=== PATIENT | female | born 1990 | race Hispanic/Latino ===

== ENCOUNTER 2017-03-11 17:54 | Emergency (ER) | payer OTHER ==
[2017-03-11 18:27] VITALS: BP 115/75; PULSE 61; RESP 18; O2SAT 99
--- NOTE | 2017-03-11 19:19 | ED.REPORT ---
HPI-General Illness Date of Service Mar 11, 2017 ED Provider: History of Present Illness: Patient hit head on a tree branch at 2:00 today. Did not lose consciousness. Feeling some dizziness. Has a headache at this point. Is not taking any medications for headache. NO visual changes. NO altered level of conciousness Nursing Notes Stated Complaint: FALL Chief Complaint: Skin Rash/Abscess Allergies: Coded Allergies: No Known Allergies (Unverified , 03/11/17) General Time Seen by MD: 19:12 Chief Complaint Headache Hx Obtained From: Patient Arrived By: Walk-in Sudden in Onset?: Yes Onset Occurred: 5 - 8 hours ago Symptom Duration: Since onset Caused by: Accidental Location: : Head Radiation: : Does not radiate Severity: Current: Moderate Severity: Maximum: Moderate Recent Healthcare: No recent doctor visit Similar Sx Previous: No Past Medical History Past Medical History Notes: denies Review of Systems Full Review of Systems Constitutional: Denies: Fever Eyes: Denies: Blurred bilateral, Eye pain bilateral, Visual loss bilateral Respiratory: Denies: Dyspnea on exertion Cardiovascular: Denies: Chest pain GI: Denies: Abdominal pain, Nausea, Vomiting Musculoskeletal: Denies: Back pain Neurologic: Reports: Headache, Denies: Change LOC, Confusion, Dizziness, Lightheaded, Numbness Complete sys rev & neg: except as marked. Physical Exam Vital Signs Vital Signs Date Time Temp Pulse Resp B/P Pulse Ox O2 Delivery O2 Flow Rate FiO2 03/11/17 18:27 37.4 61 18 115/75 99 Room Air Initial VS: Reviewed, Vital signs normal General/Constitutional: Well-developed, Well-nourished Head / Eyes: Atraumatic, Normocephalic, PERRL ENT: Mucous membranes moist, Conjunctiva normal, No scleral icterus Neck: Supple, Non-tender, Full range of motion Respiratory: Breath sounds normal, Clear to auscultation, No respiratory distress Cardiovascular: Regular rate & rhythm, Heart sounds normal, Intact distal pulses Abdomen / GI: Soft, Non-tender, No guarding, No rebound, No distention Skin: Warm, Dry, No cyanosis Neurologic: Alert, Oriented, Nonfocal Psychiatric: Mood/affect normal, Behavior normal, Normal thought content Head / Eyes: Normocephalic, PERRL, EOMI, No nystagmus, No periorbital redness, No periorbital swelling, No photophobia ENT: Airway patent, Mucous membranes moist, Pharynx NL Neck: Supple, No meningismus, Full range of motion, No swelling, Non-tender, No masses Respiratory / Chest: Breath sounds NL, No respiratory distress, No rales, No rhonchi, No wheezing Cardiovascular: Heart rate NL, Regular rhythm, Heart sounds NL, Cap refill not delayed, Peripheral circulation NL Abdomen: Non-tender, No guarding, No rebound Discharge & Departure Shift Change Sign-Out Procedures: Results discussed Response to Therapy: Unchanged Primary Impression: Head contusion Encounter type: initial encounter Contusion of head detail: unspecified part of head Qualified Code: S00.93XA - Contusion of unspecified part of head , initial encounter Additional Impression: Abrasion head Disposition: Home Discharge Condition All VS Reviewed: Yes Condition: Stable Patient Instructions: Contusion in Adults (ED) Additional Instructions: You have a contusion on her head today. Follow-up if you become confused, dizzy , you have visual changes or you experience any other significant changes. Otherwise follow-up with your doctor in 1-2 days. U have an abrasion on your head you may apply [id number] antibiotic ointments as needed NO work until you are cleared by your doctor. NO work for 2 days, follow up by for recheck. d/c instructions through estate planning attorney Referrals: [facility] EDSupervising Provider for APC: Bruce Higginbotham Linnea K ARNP Mar 11, 2017 19:19
[2017-03-11 22:04] VITALS: BP 128/67; PULSE 71; RESP 17; O2SAT 98
== END 2017-03-11 20:10 | disposition home or self-care (01) ==
LOC: SED 17:54
DX: S00.83XA Contusion of other part of head, initial encounter (principal); S00.81XA Abrasion of other part of head, initial encounter; W22.8XXA Striking against or struck by other objects, initial encounter; Y93.89 Activity, other specified; Y92.69 Other specified industrial and construction area as the place of occurrence of the external cause; Y99.0 Civilian activity done for income or pay